=== PATIENT | female | born 1945 | race Caucasian/White ===

== ENCOUNTER → 2018-10-15 14:50 | Outpatient (CLI) | payer MEDICARE, SELFPAY ==
--- NOTE | 2018-10-15 14:58 | XR_ITS ---
XR knee LT 3V HISTORY: ITS.REASON: OA, LT KNEE PAIN ORDERING PHYSICIAN: Chandana Ambrocio MD PATIENT AGE: 73 years COMPARISON: 03/17/2017 FINDINGS: Moderate to severe osteoarthritic changes are present involving the lateral compartment with valgus angulation of the tibia. There are moderate osteoarthritic changes of the patellofemoral joint. Mild osteoarthritis involves the medial compartment. No fracture or dislocation. IMPRESSION: Moderate to severe osteoarthritis of the left knee worse at the lateral compartment. This is somewhat progressed compared to the previous exam
== END ==
PROVIDERS: PCP Family Medicine; Visit Provider Family Medicine
DX: M25.562 Pain in left knee (principal)
CPT/HCPCS: 73562

== ENCOUNTER → 2019-03-29 11:13 | Outpatient (CLI) | payer MEDICARE, SELFPAY ==
[2019-03-29 11:51] LABS: Hemoglobin A1C 5.6 % (0.0-7.0)
[2019-03-29 13:22] LABS: Alanine Aminotransferase 21 U/L (12-78); Albumin Level 3.7 gm/dL (3.4-5.0); Albumin/Globulin Ratio 1.2 (1.1-1.8); Alkaline Phosphatase 89 U/L (46-116); Anion Gap 14.1 mEq/L (5-15); Aspartate Amino Transferase 19 U/L (15-37); Bilirubin,Total 0.4 mg/dL (0.2-1.0); Blood Urea Nitrogen 15 mg/dL (7-18); Calcium 8.8 mg/dL (8.5-10.1); Carbon Dioxide 27 mmol/L (21.0-32.0); Chloride 106 mmol/L (98-107); Chol/HDL Ratio 3.5 (1-3.5); Cholesterol 173 mg/dL (140-200); Creatinine,Serum 0.67 mg/dL (0.55-1.02); Estimated Glomerular Filt Rate 87 ml/min (>60); GFR (African American) 105 ML/MIN (>60); Glucose 93 mg/dL (74-106); HDL Cholesterol 49 mg/dL (29-89); LDL Cholesterol 90 mg/dL (0-130); Potassium 4.1 mmoL/L (3.5-5.1); Sodium 143 mmol/L (136-145); Thyroid Stimulating Hormone 2.11 uIU/ml (0.358-3.740); Total Protein,Serum 6.7 gm/dL (6.4-8.2); Triglycerides 171 mg/dL (30-200); VLDL Cholesterol 34 mg/dL (0-40)
== END ==
PROVIDERS: Visit Provider Family Medicine
DX: E03.9 Hypothyroidism, unspecified (principal); R60.0 Localized edema; Z79.899 Other long term (current) drug therapy
CPT/HCPCS: 36415; 80053; 80061; 83036; 84443

== ENCOUNTER 2020-04-02 08:54 | Emergency (ER) | payer MEDICARE, SELFPAY ==
--- NOTE | 2020-04-02 | ECG_ITS ---
APPROVED REPORT Exam: Resting ECG HR:72 bpm ECG Measurements Heart Rate 72 AXES AL 156 P 109 QRSd 82 QRS -7 QT 408 T 11 QTc 446 <Conclusion> Normal sinus rhythm Normal ECG Electronically signed by : Azeem Adams, 04/03/2020 17:12:59
[2020-04-02 08:55] VITALS: BP 159/74; PULSE 102; RESP 20; TEMP 36.7; O2SAT 97; BMI 35.4
--- NOTE | 2020-04-02 09:17 | XR_ITS ---
PROCEDURE: XR CHEST PORTABLE CLINICAL HISTORY: chest pain Mid chest pain COMPARISON: No exams were available for comparison FINDINGS: Normal heart size. There is increased density in the retrocardiac region centrally and may be due to hiatal hernia. This could be confirmed with CT. The remaining lungs are clear. The lungs are clear without infiltrates, suspicious nodules, or pleural effusions. No acute bony abnormalities. IMPRESSION: Suspect hiatal hernia otherwise negative Dictated by: Donato Palomo MD 04/02/2020 09:43 Electronically signed by Donato Palomo MD in [place] 04/02/2020 09:43
--- NOTE | 2020-04-02 09:29 | CT_ITS ---
PROCEDURE: CT ABDOMEN PELVIS W CON CLINICAL INDICATION: vomiting diarrhea Nausea, vomiting, diarrhea with epigastric pain COMPARISON: No exams were available for comparison TECHNIQUE: IV Contrast: 75ML OPTIRAY 350 Oral Contrast None Axial images obtained with sagittal and coronal reformats. All CT scans at the facility use one or more dose reduction, viz: automated exposure control, ma/kV adjustment per patient size (including targeted exams where dose is matched to indication, i.e. head), or iterative reconstruction technique. FINDINGS: LOWER THORAX: Moderate-sized hiatal hernia. ABDOMEN & PELVIS: The liver, spleen, adrenal glands, and pancreas have an unremarkable appearance. There is some mild thickening of the gastric antrum and duodenal bulb which could be related to duodenitis/gastritis. Upper endoscopy or upper GI may confirm. There are bilateral parapelvic renal cysts. No renal or ureteral calculi No intestinal obstruction or free air.. No evidence of appendicitis. There are scattered colonic diverticula. No evidence of diverticulitis. No pelvic mass or abnormal fluid collection. There is some thickening of the abdominal wall at the umbilical region possibly due to prior surgery. No abdominal wall hernias apparent. No acute bony finding. IMPRESSION: 1. Moderate-sized hiatal hernia. 2. Thickening of the gastric antrum and duodenum which could be related underlying gastritis/duodenitis. Infiltrating process such as neoplasm is an additional consideration. Upper endoscopy may provide further evaluation. 3. Colonic diverticulosis without diverticulitis Dictated by: Donato Palomo MD 04/02/2020 10:33 Electronically signed by Donato Palomo MD in [place] 04/02/2020 10:33
[2020-04-02 09:30] LABS: Basophils % 0.6 % (0.1-2.0); Eosinophils # 0.1 K/mm3 (0.0-0.4); Eosinophils % 0.7 % (0.1-12.0); Hematocrit 37.9 % (37.0-47.0); Lymphocytes # 1.7 K/mm3 (0.7-4.5); Lymphocytes % 25.6 % (10-50); Mean Corpuscular HGB Conc 34.3 g/dL (31.8-35.4); Mean Corpuscular Hemoglobin 31.1 pg (27.0-31.2); Mean Corpuscular Volume 90.7 fl (81-99); Mean Platelet Volume 9.1 fl (7.4-10.4); Monocytes # 0.2 K/mm3 (0.1-1.0); Monocytes % 3.2 % (1.7-9.3); Neutrophils # 4.5 K/mm3 (1.8-7.8); Neutrophils % 69.9 % (37.0-80.0); Platelet Count 179 K/mm3 (142-424); Red Blood Count 4.18 M/mm3 (4.20-5.40); Red Cell Distribution Width 13.7 % (11.5-17.5); White Blood Count 6.5 K/mm3 (4.8-10.8)
[2020-04-02 09:35] LABS: Chloride 106 mmol/L (98-107); Sodium 139 mmol/L (136-145)
[2020-04-02 09:37] LABS: Amylase 62 U/L (30-110)
[2020-04-02 09:38] LABS: Alanine Aminotransferase 18 U/L (12-78); Albumin/Globulin Ratio 1.4 (1.1-1.8); Alkaline Phosphatase 80 U/L (38-126); Aspartate Amino Transferase 26 U/L (14-36); Bilirubin,Total 0.6 mg/dl (0.2-1.3); Blood Urea Nitrogen 32 mg/dl (7-17); Calcium 8.6 mg/dl (8.4-10.2); Carbon Dioxide 22 mmol/L (22.0-30.0); Creatinine Clearance Estimated 72 mL/min (50-200); Estimated Glomerular Filt Rate 121 ml/min (>60); GFR (African American) 146 ML/MIN (>60); Globulin 2.8 g/dL (1.3-3.2); Glucose 126 mg/dl (74-100); Total Protein,Serum 6.8 g/dl (6.3-8.2)
[2020-04-02 09:42] LABS: Lipase 70 U/L (23-300)
[2020-04-02 09:43] VITALS: BP 117/61; PULSE 75; RESP 14; O2SAT 97
[2020-04-02 09:50] LABS: Troponin I < 0.01 ng/ml (0.00-0.034)
--- NOTE | 2020-04-02 09:52 | PC.NURSE ---
pt gone to rad
--- NOTE | 2020-04-02 10:21 | PC.NURSE ---
pt back from rad
--- NOTE | 2020-04-02 10:22 | PC.NURSE ---
pt gone to restroom
[2020-04-02 10:30] LABS: Appearance,Urine CLEAR (Clear); Bilirubin,Urine Negative (Negative); Blood, Urine TRACE-L (Negative); Color,Urine YELLOW (Yellow); Glucose,Urine (UA) Negative (Negative); Ketones,Urine TRACE (Negative); Leukocyte Esterase,Urine 1+ (Negative); Microscopic, Urine URINE MICROSCOPIC (MICROSCOPIC); Nitrate,Urine Negative (Negative); Protein,Urine Negative (Negative); Urobilinogen,Urine 0.2 EU/dl (0.2)
[2020-04-02 10:36] LABS: Amorphous Sediment,Urine Trace /lpf; RBC,Urine Occasional #/hpf (0-3); Squamous Epithelial Cell,Urine Occasional #/hpf (0-5); WBC,Urine Occasional #/hpf (0-3)
[2020-04-02 10:48] VITALS: BP 134/81; PULSE 84; RESP 17; O2SAT 96
--- NOTE | 2020-04-02 11:14 | PC.NURSE ---
up to restroom
--- NOTE | 2020-04-02 11:16 | HMH.EDNVD ---
ED Disposition Clinical Impression: Gastroenteritis Disposition: Home, Self-Care Condition on Discharge: Good Instructions: DI for Diarrhea and Traveler's Diarrhea -- Adult, DI for Diarrhea and Traveler's Diarrhea -- Child, DI for Nausea -- Adult, DI for Nausea -- Child Additional Instructions: Please follow-up with primary care and get a EGD done to further evaluate the thickening of your stomach. Prescriptions: Ondansetron [Zofran 4mg ODT] 4 mg PO TID PRN 4 Days #15 tab.rapdis PRN Reason: Nausea Transmission Status: [facility] to [facility] Referrals: Chandana Ambrocio MD [Primary Care Provider] - - Critical Care Critical Care Time: No Attestation: On 04/02/20, the high probability of a clinically significant, sudden or life threatening deterioration of the following system(s) required my full and direct attention, intervention and personal management. The time I documented below is in addition to time spent performing reported procedures but includes the following listed in this critical care notation. Medical Decision Making - Medical Records Medical records reviewed: Yes: I reviewed the patient's medical records. - Harshal Inquiry Pt receiving controlled substance: No Vital Signs: 04/02/20 08:55 04/02/20 09:43 04/02/20 10:48 Temperature 98.1 F Temperature Source Oral Pulse Rate [Left Radial] 102 H 75 84 Respiratory Rate 20 14 17 Blood Pressure [Right Arm] 159/74 H 117/61 134/81 Blood Pressure Mean [Right Arm] 102 79 98 Blood Pressure Source [Right Arm] Automatic Cuff Automatic Cuff Blood Pressure Position [Right Arm] Sitting Supine Supine 02 Sat by Pulse Oximetry 97 97 96 Oxygen Delivery Method Room Air Room Air Room Air - Lab Data Lab results reviewed: Yes: I reviewed the patient's lab results. Lab Results 04/02/20 09:20: WBC 6.5, RBC 4.18 L, Hgb 13.0, Hct 37.9, MCV 90.7, MCH 31.1, MCHC 34.3, RDW 13.7, Plt Count 179, MPV 9.1, Neut % (Auto) 69.9, Lymph % (Auto) 25.6, [place]hin % (Auto) 3.2, Eos % (Auto) 0.7, Baso % (Auto) 0.6, Neut # (Auto) 4.5, Lymph # (Auto) 1.7, [place] # (Auto) 0.2, Eos # (Auto) 0.1, Baso # (Auto) 0.0 04/02/20 09:20: Sodium 139, Potassium 4.0, Chloride 106, Carbon Dioxide 22, Anion Gap 15.0, BUN 32 H, Creatinine 0.50 L, Estimated Creat Clear 72, Estimated GFR 121, Est GFR ( Amer) 146, Glucose 126 H, Calcium 8.6, Total Bilirubin 0.6, AST 26, ALT 18, Alkaline Phosphatase 80, Troponin I < 0.01, Total Protein 6.8, Albumin 4.0, Globulin 2.8, Albumin/Globulin Ratio 1.4, Amylase 62 04/02/20 09:20: Lipase 70 04/02/20 10:25: Urine Color Yellow, Urine Appearance Clear, Urine pH 6.0, Ur Specific [place] 1.010, Urine Protein Negative, Urine Glucose (UA) Negative, Urine Ketones Trace, Urine Blood Trace-l, Urine Nitrate Negative, Urine Bilirubin Negative, Urine Urobilinogen 0.2, Ur Leukocyte Esterase 1+ A, Urine RBC Occasional, Urine WBC Occasional, Ur Squamous Epith Cells Occasional, Amorphous Sediment Trace, Urine Bacteria None Result diagrams: 04/02/20 09:20 04/02/20 09:20 Orders (Tests/Meds): ED MEDICATIONS Generic Name Dose Route Start Last Admin Trade Name Frelauren PRN Reason Stop Dose Admin Sodium Chloride 8 ml 04/02/20 09:50 04/02/20 09:52 Sodium Chloride 0.9% 10ml Vial IV 05/02/20 09:49 8 ml NEEDED PRN Administration dilute pepcid Discontinued Medications Generic Name Dose Route Start Last Admin Trade Name Freq PRN Reason Stop Dose Admin Famotidine 20 mg 04/02/20 09:50 04/02/20 09:52 Pepcid 20mg/2ml Vial IV 04/02/20 09:51 20 mg ONCE ONE Administration Sodium Chloride 1,000 mls @ 999 mls/hr 04/02/20 09:30 04/02/20 09:15 Sod Chlor 0.9% 1000ml Bag IV 04/02/20 10:30 999 mls/hr .Q1H1M JESSICA Administration Ioversol 75 ml 04/02/20 10:13 04/02/20 10:17 Rad-Optiray 350 100ml Vial IV 04/02/20 10:14 75 ml ONCE ONE Administration Protocol Ondansetron HCl 4 mg 04/02/20 09:18 04/02/20 09:15 Zofran 4mg/2ml
--- NOTE | 2020-04-02 11:20 | PC.NURSE ---
pt going to room 216
--- NOTE | 2020-04-02 11:24 | PC.NURSE ---
called admissions to let them know that pt is going to room 216, opal to opal, bilateral pneumonia, elevated INR, obs talked to Carol
[2020-04-02 11:58] VITALS: BP 97/81; PULSE 86; RESP 16; O2SAT 95
[2020-04-02 12:59] VITALS: BP 117/87; PULSE 68; RESP 16; TEMP 36.6; O2SAT 98
== END 2020-04-02 13:01 | disposition home or self-care (01) ==
PROVIDERS: Emergency Provider Family Medicine; PCP Family Medicine
DX: K52.9 Noninfective gastroenteritis and colitis, unspecified (principal); R82.90 Unspecified abnormal findings in urine
CPT/HCPCS: 71045; 74177; 80053; 81001; 82150; 83690; 84484; 85025; 87086; 87088; 87186; 93005; 96365; 96375; 96376; 99284; J2405; Q9967

== ENCOUNTER → 2020-04-05 11:44 | Outpatient (CLI) | payer MEDICARE, SELFPAY ==
[2020-04-05 15:15] LABS: Coronavirus 19 IgG Antibody Negative (Negative); Coronavirus 19 IgM Antibody Negative (Negative)
== END ==
PROVIDERS: Visit Provider Internal Medicine Gastroenterology
DX: Z01.818 Encounter for other preprocedural examination (principal)
CPT/HCPCS: 36415; 86328

== ENCOUNTER 2020-04-07 11:22 | Day surgery (SDC) | payer MEDICARE, SELFPAY ==
[2020-04-07 12:17] VITALS: BP 128/88; PULSE 70; RESP 18; TEMP 37; O2SAT 98; BMI 34.5
[2020-04-07 13:43] VITALS: O2SAT 97
--- NOTE | 2020-04-07 13:46 | P.PCN_ITS ---
[facility] Procedure Note Procedure Note:: Upper Endoscopy Procedure Report: Esophagogastroduodenoscopy with cold biopsies Endoscopost: Jorge Chen II, MD Referring Physician: Scott Ambrocio MD Date of Procedure: April 07, 2020 Equipment: Olympus GIF 180 standard upper endoscope Sedation: MAC sedation Indications: Mrs. Oseguera is a 74-year-old female who is here for diagnostic upper endoscopy. The patient has had no abdominal complaints until Thursday, April 02, 2020 when she developed nausea, vomiting, diarrhea and melanotic stools. She did go to the emergency department where she had labs and CT scan of the abdomen showed a moderate sized hiatal hernia. There was evidence of thickening in the antrum and duodenum and infiltrative process could not be excluded. There was colonic diverticulosis. The patient's COVID testing was negative. Her hemoglobin 13.0 and hematocrit 37.9 were normal. She was given IV fluids and antiemetics and improved. She is not taking anything since then as an outpatient. All of her symptoms have resolved. The patient did have normal liver and pancreatic chemistries. She does state that she had an EGD many years ago when she was much younger. Procedure: Prior to the procedure, a history and physical exam was performed, and patient's medications and allergies were reviewed. The risks, benefits and alternatives of the sedation and procedure were discussed with the patient. All questions were answered and informed consent was obtained. The patient was brought to the procedure room. Patient identification and proposed procedure were verified by the physician and the nurse. The patient was placed in a left lateral decubitus position and the scope was passed under direct vision. Throughout the procedure, the patient's blood pressure, pulse, and oxygen saturations were monitored continuously. The upper GI endoscopy was accomplished without difficulty. The patient tolerated the procedure well. Findings: The scope was passed directly into the upper esophagus and advanced to the third portion of the duodenum. The post bulbar duodenum and duodenal bulb were normal with normal mucosa and conniventes. The scope was withdrawn through a normal duodenal bulb and pylorus into the stomach. There was some moderate linear reactive gastropathy of the antrum and body. There were superficial erosions/erosive gastropathy. Upon retroflexion there was a moderate to large (5 to 6 cm) hiatal hernia and there were linear Maxwell's erosions. The diaphragmatic hiatus was at 39 cm and the gastroesophageal junction was at 33 to 34 cm. 2 biopsies were taken in the antrum and along the lesser curvature for histology to rule out gastritis and/or H pylori. The scope was then withdrawn into the esophagus. There was no evidence of reflux esophagitis or Livingston's. There was mild presbyesophagus. The remainder of the esophageal mucosa was normal. Impression: 1. Large (5 to 6 cm) hiatal hernia with Maxwell's erosions 2. Mild presbyesophagus 3. Linear erosive gastropathy (probable reactive gastropathy) Plan: I will follow-up the biopsies. The patient is clinically much improved. I would avoid NSAIDs presently which may be the culprit. She may have had a foodborne illness or acute self-limited enteritis/gastroenteritis.
[2020-04-07 13:50] VITALS: BP 134/93; PULSE 66; RESP 18; TEMP 36.7; O2SAT 93
[2020-04-07 14:00] VITALS: BP 161/100; PULSE 78; RESP 18; O2SAT 93
[2020-04-07 14:10] VITALS: BP 158/74; PULSE 71; RESP 18; O2SAT 93
[2020-04-07 14:30] VITALS: BP 142/78; PULSE 77; RESP 18; O2SAT 96
== END 2020-04-07 14:30 | disposition home or self-care (01) ==
LOC: OUTP 11:24
PROVIDERS: PCP Family Medicine; Visit Provider Internal Medicine Gastroenterology
PROC: 0DJ08ZZ Inspection of Upper Intestinal Tract, Via Natural or Artificial Opening Endoscopic (ICD-10-PCS; CPT 43235; principal; 2020-04-07 12:30)
DX: K44.9 Diaphragmatic hernia without obstruction or gangrene (principal); K25.9 Gastric ulcer, unspecified as acute or chronic, without hemorrhage or perforation; K31.9 Disease of stomach and duodenum, unspecified; K22.8 Other specified diseases of esophagus
CPT/HCPCS: 43239; 88305

== ENCOUNTER → 2021-01-15 14:26 | Outpatient (CLI) | payer MEDICARE, SELFPAY ==
--- NOTE | 2021-01-15 14:30 | XR_ITS ---
PROCEDURE: XR KNEE LT 4V CLINICAL INDICATION: BL knee pain COMPARISON: CR [id number] XR knee LT 3V from 10/15/2018 FINDINGS: There is severe osteoarthritic change of the lateral compartment with loss of the joint space and lateral angulation of the distal tibia with the lateral femoral condyle causing some impaction upon lateral tibial plateau. These findings have progressed since 10/15/2018. There is lateral subluxation of the tibia by 7 mm. Moderate to severe osteoarthritic changes are present at the patellofemoral joint and medial compartment. No acute fracture or dislocation. Other findings:None. IMPRESSION: Severe osteoarthritis greatest at the lateral compartment with lateral tibial subluxation as described above. Dictated by: Donato Palomo MD 01/15/2021 16:25 Donato Palomo MD in [place] 01/15/2021 16:25
--- NOTE | 2021-01-15 14:30 | XR_ITS ---
PROCEDURE: XR KNEE RT 4V CLINICAL INDICATION: BL knee pain COMPARISON: CR [id number] XR knee LT 3V from 10/15/2018 FINDINGS: Severe osteoarthritic changes are present involving the lateral compartment with lateral angulation of the tibia and mild impaction upon the superior aspect the lateral tibial plateau. Osteoarthritic changes are also present at the medial compartment and patellofemoral joint. Small suprapatellar effusion suspected. IMPRESSION: Severe osteoarthritis of the lateral compartment of the right knee as described with dysplastic changes of the lateral knee joint Dictated by: Donato Palomo MD 01/15/2021 17:00 Donato Palomo MD in [place] 01/15/2021 17:00
== END ==
PROVIDERS: PCP Family Medicine; Visit Provider Orthopaedic Surgery
DX: M25.561 Pain in right knee (principal); M25.562 Pain in left knee
CPT/HCPCS: 73564

== ENCOUNTER 2021-02-02 14:35 | Outpatient (RCR) | payer MEDICARE, SELFPAY | END 2021-02-02 15:20 | disposition home or self-care (01) | LOC: PT 14:35 | PROVIDERS: Visit Provider Orthopaedic Surgery | DX: M17.0 Bilateral primary osteoarthritis of knee (principal) ==

== ENCOUNTER → 2021-03-22 11:43 | Outpatient (CLI) | payer MEDICARE, SELFPAY ==
--- NOTE | 2021-03-22 | ECG_ITS ---
APPROVED REPORT Exam: Resting ECG HR:61 bpm ECG Measurements Heart Rate 61 AXES OH 156 P 6 QRSd 88 QRS 52 QT 392 T 34 QTc 394 Conclusion Normal sinus rhythm Normal ECG Electronically signed by : Azeem Adams, 03/22/2021 18:02:25
--- NOTE | 2021-03-22 12:04 | XR_ITS ---
PROCEDURE: XR CHEST 2V CLINICAL HISTORY: Essential (primary) hypertension COMPARISON: CR XR CHEST PORTABLE from 04/02/2020 FINDINGS: The cardiomediastinal silhouette and pulmonary vascularity are within normal limits. The lungs are clear without infiltrates, suspicious nodules, or pleural effusions. There is a small hiatal hernia. Degenerative changes are present in the thoracic spine. There is evidence of old granulomatous disease IMPRESSION: No change with no acute finding. Dictated by: Donato Palomo MD 03/22/2021 14:21 Donato Palomo MD in [place] 03/22/2021 14:21
[2021-03-22 12:40] LABS: Chloride 106 mmol/L (98-107); Sodium 142 mmol/L (136-145)
[2021-03-22 12:41] LABS: Potassium 4.7 mmoL/L (3.5-5.1)
[2021-03-22 12:43] LABS: Alanine Aminotransferase 14 U/L (12-78); Albumin Level 4.4 g/dl (3.5-5.0); Albumin/Globulin Ratio 1.6 (1.1-1.8); Alkaline Phosphatase 107 U/L (38-126); Anion Gap 14.7 mEq/L (5-15); Aspartate Amino Transferase 23 U/L (14-36); Bilirubin,Total 0.4 mg/dl (0.2-1.3); Blood Urea Nitrogen 11 mg/dl (7-17); Carbon Dioxide 26 mmol/L (22.0-30.0); Cholesterol 200 mg/dl (140-200); Estimated Glomerular Filt Rate 98 ml/min (>60); GFR (African American) 118 ML/MIN (>60); Globulin 2.7 g/dL (1.3-3.2); Total Protein,Serum 7.1 g/dl (6.3-8.2); Triglycerides 276 mg/dl (30-150); VLDL Cholesterol 55 mg/dL (0-40)
[2021-03-22 12:44] LABS: Calcium 9.3 mg/dl (8.4-10.2); Chol/HDL Ratio 4.2 (1-3.5); Glucose 97 mg/dl (74-100); HDL Cholesterol 48 mg/dl (40-60)
[2021-03-22 12:54] LABS: Direct LDL Cholesterol 119.64 mg/dL (100-129)
[2021-03-22 13:14] LABS: Thyroid Stimulating Hormone 2.43 uIU/mL (0.465-4.68)
== END ==
PROVIDERS: Visit Provider Family Medicine
DX: I10 Essential (primary) hypertension (principal); R07.2 Precordial pain; E03.9 Hypothyroidism, unspecified
CPT/HCPCS: 36415; 71046; 80053; 80061; 84443; 93005

== ENCOUNTER → 2021-04-19 16:09 | Outpatient (CLI) | payer MEDICARE, SELFPAY ==
[2021-04-19 16:55] LABS: Basophils # 0.1 K/mm3 (0-0.2); Basophils % 0.9 % (0.1-2.0); Eosinophils # 0.1 K/mm3 (0.0-0.4); Eosinophils % 1.1 % (0.1-12.0); Hematocrit 43.5 % (37.0-47.0); Hemoglobin 14.5 g/dL (12.2-16.2); Lymphocytes # 2.7 K/mm3 (0.7-4.5); Lymphocytes % 41.5 % (10-50); Mean Corpuscular HGB Conc 33.4 g/dL (31.8-35.4); Mean Corpuscular Hemoglobin 30.2 pg (27.0-31.2); Mean Corpuscular Volume 90.6 fl (81-99); Mean Platelet Volume 9.8 fl (7.4-10.4); Monocytes # 0.3 K/mm3 (0.1-1.0); Monocytes % 4.1 % (1.7-9.3); Neutrophils # 3.5 K/mm3 (1.8-7.8); Neutrophils % 52.4 % (37.0-80.0); Platelet Count 194 K/mm3 (142-424); Red Blood Count 4.81 M/mm3 (4.20-5.40); Red Cell Distribution Width 13.4 % (11.5-17.5); White Blood Count 6.6 K/mm3 (4.8-10.8)
[2021-04-19 17:03] LABS: Activated Partial Thrombo Time 26.3 seconds (22.8-30.6); Prothrombin Time 10.9 seconds (10.1-12.5)
[2021-04-19 17:05] LABS: INR 0.92 (0.9-1.1)
[2021-04-19 17:57] LABS: Chloride 104 mmol/L (98-107); Sodium 143 mmol/L (136-145)
[2021-04-19 17:58] LABS: Potassium 4.5 mmoL/L (3.5-5.1)
[2021-04-19 18:01] LABS: Anion Gap 13.5 mEq/L (5-15); Blood Urea Nitrogen 14 mg/dl (7-17); Carbon Dioxide 30 mmol/L (22.0-30.0); Estimated Glomerular Filt Rate 82 ml/min (>60); GFR (African American) 99 ML/MIN (>60); Glucose 83 mg/dl (74-100)
== END ==
PROVIDERS: Visit Provider Family Medicine
DX: Z01.818 Encounter for other preprocedural examination (principal); Z51.81 Encounter for therapeutic drug level monitoring
CPT/HCPCS: 36415; 80048; 85025; 85610; 85730

== ENCOUNTER → 2021-04-21 09:39 | Outpatient (CLI) | payer MEDICARE, SELFPAY ==
[2021-04-21 09:52] LABS: Microscopic, Urine URINE MICROSCOPIC (MICROSCOPIC)
[2021-04-21 09:59] LABS: Appearance,Urine CLEAR (Clear); Bilirubin,Urine Negative (Negative); Blood, Urine Negative (Negative); Color,Urine YELLOW (Yellow); Glucose,Urine (UA) Negative (Negative); Ketones,Urine Negative (Negative); Leukocyte Esterase,Urine 1+ (Negative); Nitrate,Urine Negative (Negative); PH,Urine 5.5 (5.0-8.5); Protein,Urine Negative (Negative); Specific Gravity, Urine 1.025 (1.005-1.030); Urobilinogen,Urine 0.2 EU/dl (0.2)
[2021-04-21 10:19] LABS: Bacteria,Urine Trace /lpf; RBC,Urine Occasional #/hpf (0-3); Squamous Epithelial Cell,Urine Occasional #/hpf (0-5)
== END ==
PROVIDERS: Visit Provider Family Medicine
DX: Z01.818 Encounter for other preprocedural examination (principal); R82.90 Unspecified abnormal findings in urine
CPT/HCPCS: 81001; 87086

== ENCOUNTER 2022-05-20 21:24 | Observation (INO) | payer MEDICARE, SELFPAY ==
--- NOTE | 2022-05-20 21:07 | ECG_ITS ---
APPROVED REPORT Exam: Resting ECG HR:76 bpm ECG Measurements Heart Rate 76 AXES WA 186 P 57 QRSd 98 QRS -11 QT 388 T 28 QTc 418 Conclusion SINUS RHYTHM POSSIBLE RIGHT VENTRICULAR CONDUCTION DELAY [RSR (QR) IN V1/V2] PROBABLE SEPTAL MYOCARDIAL INFARCTION , PROBABLY OLD [35 ms Q WAVE IN V1/V2] ABNORMAL ECG UNCONFIRMED REPORT Electronically signed by : Azeem Adams MD 05/21/2022 21:24:39
[2022-05-20 21:23] VITALS: BP 119/65; PULSE 82; RESP 16; TEMP 36.8; O2SAT 96; BMI 31.8
--- NOTE | 2022-05-20 21:37 | XR_ITS ---
PROCEDURE INFORMATION: Exam: XR Chest Exam date and time: 05/20/2022 9:40 PM Age: 76 years old Clinical indication: Other: Faint, diaphoretic; Additional info: Faint feeling, diaphoretic TECHNIQUE: Imaging protocol: Radiologic exam of the chest. Views: 2 views. COMPARISON: CR XR CHEST 2V 03/22/2021 12:16 PM FINDINGS: Lungs: Unremarkable. No consolidation. Pleural spaces: Unremarkable. No pleural effusion. No pneumothorax. Heart/Mediastinum: Unremarkable. No cardiomegaly. Bones/joints: Unremarkable. IMPRESSION: No acute cardiopulmonary abnormality.
[2022-05-20 21:48] LABS: Coronavirus 19, PCR Not Detected (NotDetected); Influenza A, PCR Not Detected (NotDetected); Influenza B, PCR Not Detected (NotDetected)
--- NOTE | 2022-05-20 22:04 | CT_ITS ---
PROCEDURE INFORMATION: Exam: CT Head Without Contrast Exam date and time: 05/20/2022 10:20 PM Age: 76 years old Clinical indication: Pain; Other: Vomiting; Headache; Additional info: Headache vomiting TECHNIQUE: Imaging protocol: Computed tomography of the head without contrast. Radiation optimization: All CT scans at this facility use at least one of these dose optimization techniques: automated exposure control; mA and/or kV adjustment per patient size (includes targeted exams where dose is matched to clinical indication); or iterative reconstruction. COMPARISON: No relevant prior studies available. FINDINGS: Brain: Diffuse cerebral volume loss noted throughout. Low attenuation noted in the white matter. Cerebral ventricles: No ventriculomegaly. Paranasal sinuses: Visualized sinuses are unremarkable. No fluid levels. Mastoid air cells: Visualized mastoid air cells are well aerated. Bones/joints: Unremarkable. No acute fracture. Soft tissues: Unremarkable. IMPRESSION: No evidence of acute intracranial hemorrhage, mass effect, or edema.
[2022-05-20 22:05] VITALS: BP 121/63; PULSE 76; O2SAT 91
[2022-05-20 22:06] LABS: Chloride 108 mmol/L (98-107); Potassium 3.5 mmoL/L (3.5-5.1); Sodium 141 mmol/L (136-145)
[2022-05-20 22:08] LABS: Alanine Aminotransferase 19 U/L (12-78); Aspartate Amino Transferase 34 U/L (14-36); Blood Urea Nitrogen 18 mg/dl (7-17); Creatinine Clearance Estimated 63 mL/min (50-200); Estimated Glomerular Filt Rate 70 ml/min (>60); GFR (African American) 85 ML/MIN (>60)
[2022-05-20 22:08] LABS: Microscopic, Urine URINE MICROSCOPIC (MICROSCOPIC)
[2022-05-20 22:09] LABS: Albumin Level 4.2 g/dl (3.5-5.0); Albumin/Globulin Ratio 1.6 (1.1-1.8); Alkaline Phosphatase 92 U/L (38-126); Anion Gap 9.5 mEq/L (5-15); Basophils % 0.5 % (0.1-2.0); Calcium 8.4 mg/dl (8.4-10.2); Carbon Dioxide 27 mmol/L (22.0-30.0); Eosinophils # 0.1 K/mm3 (0.0-0.4); Eosinophils % 1.2 % (0.1-12.0); Globulin 2.7 g/dL (1.3-3.2); Glucose 119 mg/dl (74-100); Hematocrit 44.4 % (37.0-47.0); Hemoglobin 13.6 g/dL (12.2-16.2); Lipase 318 U/L (23-300); Lymphocytes # 1.7 K/mm3 (0.7-4.5); Mean Corpuscular HGB Conc 30.7 g/dL (31.8-35.4); Mean Corpuscular Hemoglobin 30.6 pg (27.0-31.2); Mean Corpuscular Volume 99.6 fl (81-99); Mean Platelet Volume 10.5 fl (7.4-10.4); Monocytes # 0.4 K/mm3 (0.1-1.0); Monocytes % 5.6 % (1.7-9.3); Neutrophils # 4.2 K/mm3 (1.8-7.8); Neutrophils % 65.7 % (37.0-80.0); Platelet Count 158 K/mm3 (142-424); Red Blood Count 4.46 M/mm3 (4.20-5.40); Red Cell Distribution Width 13.3 % (11.5-17.5); Total Protein,Serum 6.9 g/dl (6.3-8.2); White Blood Count 6.4 K/mm3 (4.8-10.8)
[2022-05-20 22:11] LABS: Appearance,Urine SL CLOUDY (Clear); Bilirubin,Urine Negative (Negative); Blood, Urine TRACE-I (Negative); Color,Urine YELLOW (Yellow); Glucose,Urine (UA) Negative (Negative); Ketones,Urine Negative (Negative); Leukocyte Esterase,Urine 2+ (Negative); Nitrate,Urine Negative (Negative); Protein,Urine 1+ (Negative); Specific Gravity, Urine 1.025 (1.005-1.030); Urobilinogen,Urine 0.2 EU/dl (0.2)
[2022-05-20 22:15] LABS: Bilirubin,Total < 0.1 mg/dl (0.2-1.3); C-Reactive Protein 8.9 mg/L (0-4)
[2022-05-20 22:22] LABS: Bacteria,Urine 2+ /lpf; RBC,Urine Occasional #/hpf (0-3); WBC,Urine 20-50 #/hpf (0-3)
[2022-05-20 22:25] LABS: Troponin I < 0.01 ng/ml (0.00-0.034)
[2022-05-20 22:31] VITALS: BP 146/78; PULSE 74; O2SAT 96
[2022-05-20 22:40] LABS: Erythrocyte Sedimentation Rate 14 mm/hr (0-30)
[2022-05-20 23:01] VITALS: BP 133/106; PULSE 79; O2SAT 96
--- NOTE | 2022-05-20 23:05 | PC.NURSE ---
Pt given pillow for comfort. No other needs or complaints voiced at this time.
--- NOTE | 2022-05-20 23:23 | PC.NURSE ---
patient assisted to bathroom, given cup of ice water. No other needs at this time
[2022-05-20 23:24] LABS: Procalcitonin 0.043 ng/mL (0.0-2.0)
--- NOTE | 2022-05-20 23:34 | PC.NURSE ---
at speaking with pt about POC
--- NOTE | 2022-05-20 23:44 | HMH.EDCP ---
ED Disposition Clinical Impression: Chest pain Qualifiers: Chest pain type: unspecified Qualified Code(s): R07.9 - Chest pain, unspecified UTI (urinary tract infection) Qualifiers: Urinary tract infection type: site unspecified Hematuria presence: without hematuria Qualified Code(s): N39.0 - Urinary tract infection, site not specified Disposition: Admitted as Observation Condition on Discharge: Good Instructions: DI for Diarrhea and Traveler's Diarrhea -- Adult, DI for Diarrhea and Traveler's Diarrhea -- Child, DI for Nausea -- Adult, DI for Nausea -- Child Referrals: Chandana Ambrocio MD [Primary Care Provider] - - Critical Care Critical Care Time: No Attestation: On 05/20/22, the high probability of a clinically significant, sudden or life threatening deterioration of the following system(s) required my full and direct attention, intervention and personal management. The time I documented below is in addition to time spent performing reported procedures but includes the following listed in this critical care notation. Medical Decision Making - Medical Records Medical records reviewed: Yes: I reviewed the patient's medical records. - Harshal Inquiry Pt receiving controlled substance: No Vital Signs: 05/20/22 21:23 05/20/22 22:05 05/20/22 22:31 Temperature 98.2 F Temperature Source Oral Pulse Rate 76 74 Pulse Rate [Left] 82 Respiratory Rate 16 Blood Pressure 121/63 146/78 H Blood Pressure [Right Arm] 119/65 Blood Pressure Mean [Right Arm] 83 02 Sat by Pulse Oximetry 96 91 L 96 Oxygen Delivery Method Room Air Room Air Room Air 05/20/22 23:01 Temperature Temperature Source Pulse Rate 79 Pulse Rate [Left] Respiratory Rate Blood Pressure 133/106 H Blood Pressure [Right Arm] Blood Pressure Mean [Right Arm] 02 Sat by Pulse Oximetry 96 Oxygen Delivery Method Room Air - Lab Data Lab results reviewed: Yes: I reviewed the patient's lab results. Lab Results 05/20/22 21:28: SARS-CoV-2 (PCR) Not detected, Influenza A Untype (PCR) Not detected, Influenza Type B (PCR) Not detected 05/20/22 21:30: WBC 6.4, RBC 4.46, Hgb 13.6, Hct 44.4, MCV 99.6 H, MCH 30.6, MCHC 30.7 L, RDW 13.3, Plt Count 158, MPV 10.5 H, Neut % (Auto) 65.7, Lymph % (Auto) 27.0, Vance % (Auto) 5.6, Eos % (Auto) 1.2, Baso % (Auto) 0.5, Neut # (Auto) 4.2, Lymph # (Auto) 1.7, Vance # (Auto) 0.4, Eos # (Auto) 0.1, Baso # (Auto) 0.0, ESR 14 05/20/22 21:30: Sodium 141, Potassium 3.5, Chloride 108 H, Carbon Dioxide 27, Anion Gap 9.5, BUN 18 H, Creatinine 0.80, Estimated Creat Clear 63, Estimated GFR 70, Est GFR ( Amer) 85, Glucose 119 H, Calcium 8.4, Total Bilirubin < 0.1 L, AST 34, ALT 19, Alkaline Phosphatase 92, Troponin I < 0.01, C-Reactive Protein 8.9 H, Total Protein 6.9, Albumin 4.2, Globulin 2.7, Albumin/Globulin Ratio 1.6, Lipase 318 H, Procalcitonin 0.043 05/20/22 22:04: Urine Color Yellow, Urine Appearance Sl cloudy, Urine pH 6.0, Ur Specific [place] 1.025, Urine Protein 1+, Urine Glucose (UA) Negative, Urine Ketones Negative, Urine Blood Trace-i, Urine Nitrate Negative, Urine Bilirubin Negative, Urine Urobilinogen 0.2, Ur Leukocyte Esterase 2+ A, Urine RBC Occasional, Urine WBC 20-50, Ur Squamous Epith Cells 5-10, Urine Bacteria 2+ Result diagrams: 05/20/22 21:30 05/20/22 21:30 Orders (Tests/Meds): ED MEDICATIONS Generic Name Dose Route Start Last Admin Trade Name Freq PRN Reason Stop Dose Admin Sodium Chloride 1,000 mls @ 999 mls/hr 05/20/22 22:00 05/20/22 22:11 Sod Chlor 0.9% 1000ml Bag IV 05/20/22 23:00 999 mls/hr .Q1H1M JESSICA Administration Ceftriaxone Sodium 1 gm/ 50 mls @ 100 mls/hr 05/20/22 23:45 Sodium Chloride IV 06/03/22 23:44 Q24H JESSICA Discontinued Medications Generic Name Dose Route Start Last Admin Trade Name Freq PRN Reason Stop Dose Admin Ketorolac Tromethamine 30 mg 05/20/22 22:04 05/20/22 22:12 Ketorolac 30mg/Ml Vial IV 05/20/22 22:05 30 mg ONCE O
--- NOTE | 2022-05-20 23:49 | PC.NURSE ---
Dr. Waters on phone with Dr. Ramires
--- NOTE | 2022-05-20 23:59 | PC.NURSE ---
log sorting supervisor notified of pt admission and need for bed assignment
[2022-05-21] VITALS (9 sets, daily range): BP systolic 107–140; BP diastolic 50–95; PULSE 60–86; RESP 16–22; TEMP 36.3–36.8; O2SAT 93–98; BMI 32.5; BMI 32.1; BMI 32.0
--- NOTE | 2022-05-21 00:46 | PC.NURSE ---
PT ARRIVED VIA STRETCHER TO FLOOR AT THIS TIME
[2022-05-21 00:59] LABS: Troponin I < 0.01 ng/ml (0.00-0.034)
[2022-05-21 03:50] LABS: Basophils # 0.1 K/mm3 (0-0.2); Basophils % 1.9 % (0.1-2.0); Eosinophils # 0.1 K/mm3 (0.0-0.4); Hematocrit 44.6 % (37.0-47.0); Hemoglobin 13.5 g/dL (12.2-16.2); Lymphocytes # 1.6 K/mm3 (0.7-4.5); Lymphocytes % 32.5 % (10-50); Mean Corpuscular HGB Conc 30.3 g/dL (31.8-35.4); Mean Corpuscular Hemoglobin 30.2 pg (27.0-31.2); Mean Corpuscular Volume 99.7 fl (81-99); Mean Platelet Volume 9.7 fl (7.4-10.4); Monocytes # 0.3 K/mm3 (0.1-1.0); Monocytes % 5.4 % (1.7-9.3); Neutrophils # 2.9 K/mm3 (1.8-7.8); Neutrophils % 59.1 % (37.0-80.0); Platelet Count 163 K/mm3 (142-424); Red Blood Count 4.48 M/mm3 (4.20-5.40); Red Cell Distribution Width 13.3 % (11.5-17.5); White Blood Count 4.9 K/mm3 (4.8-10.8)
[2022-05-21 03:57] LABS: Anion Gap 6.9 mEq/L (5-15); Blood Urea Nitrogen 14 mg/dl (7-17); Calcium 8.6 mg/dl (8.4-10.2); Carbon Dioxide 29 mmol/L (22.0-30.0); Chloride 110 mmol/L (98-107); Creatinine Clearance Estimated 64 mL/min (50-200); Estimated Glomerular Filt Rate 82 ml/min (>60); GFR (African American) 99 ML/MIN (>60); Glucose 96 mg/dl (74-100); Magnesium 1.9 mg/dl (1.6-2.3); Potassium 3.9 mmoL/L (3.5-5.1); Sodium 142 mmol/L (136-145)
[2022-05-21 04:44] LABS: Troponin I < 0.01 ng/ml (0.00-0.034)
--- NOTE | 2022-05-21 05:05 | PC.NURSE ---
Patient admitted to floor. Patient a&o x4. Patient tolerate RA. Patient has had no episodes of chest pain thus far in shift. VSS Ua culture is pending. Patine thas been NSR on tele. Call light in reach.
--- NOTE | 2022-05-21 07:20 | HMH.PHAVTE ---
[facility] Pharmacy VTE Monitoring - Patient Demographics Admission date: 05/20/22 Report Date: 05/21/22 Time: 07:20 Allergies/Adverse Reactions: Patient Allergies No Known Allergies Allergy (Verified 10/08/21 13:49) Height: 1.6 m Weight: 82.242 kg Patient Problems: Current Active Problems Chest pain (Acute) UTI (urinary tract infection) (Acute) - VTE Risk Labs: VTE Related Lab Results Hgb 13.5 g/dL (12.2-16.2) 05/21/22 03:35 Hct 44.6 % (37.0-47.0) 05/21/22 03:35 Plt Count 163 K/mm3 (142-424) 05/21/22 03:35 BUN 14 mg/dl (7-17) 05/21/22 03:35 Creatinine 0.70 mg/dl (0.52-1.04) 05/21/22 03:35 Estimated Creat Clear 64 mL/min (50-200) 05/21/22 03:35 Was VTE Risk Assessment Performed: Yes VTE Score: 1 VTE Risk Level: Very Low Risk - Prophylaxis VTE Prophylaxis Ordered?: Yes Types of VTE Prophylaxis: TEDS Knee High Location of Applied Device: Bilateral Lower Extremeties
--- NOTE | 2022-05-21 07:20 | HMH.PHAINT ---
MEDICATION RECONCILIATION COMPLETED ON PATIENT USING EXTERNAL FILL HISTORY FROM PHARMACY. -JAYME PERES, IVONED
--- NOTE | 2022-05-21 09:17 | HMH.HP ---
*Admission Date: 05/20/22 <Jesusita Cody 05/21/22 09:34> *Chief complaint: Dizziness; diaphoresis <Jesusita Cody 05/21/22 09:34> *History of present illness: Ms. Oseguera is a 75-year-old female with a history of arthritis, diverticulosis, GERD, and and hypothyroidism who was brought to [facility] emergency room by EMS for evaluation after a sudden episode of dizziness followed by vomiting and diaphoresis. Neighbors were present at the time and states she complained of chest pain. Patient denies having chest pain and shortness of breath. She has had heart palpitations in the past does not recall this occurring yesterday. She stated that she was outside playing with children . Her son was called who summoned EMS to transport her to the emergency room for evaluation. In the emergency room she did receive a liter of IV fluids and was given 30 mg of Ketorolac IV as well as IV Zofran and promethazine. She was also started on Rocephin for possible urinary tract infection with hematuria. Chest x-ray showed nothing acute. CT of the head Revealed no evidence of acute intracranial hemorrhage, mass-effect or edema. Patient has had 3 negative troponin I's. This a.m. patient states she feels fine. She denies chest pain and shortness of breath. <Jesusita Cody 05/21/22 09:42> [facility] History Medical History: Reports:: Gastroesophageal Reflux Disease(GERD), Hypertension, Urinary Tract Infection Denies:: Cancer, Diabetes Mellitus Type 1, Diabetes Mellitus Type 2, Internal Pacemaker, MRSA, Seizures <Jesusita Cody 05/21/22 09:42> *Have you ever received a pneumonia vaccine?: No <Jesusita Cody 05/21/22 09:34> *Have you received a flu vaccine this season?: No <Jesusita Cody 05/21/22 09:34> Other Medical History: Reports: Hypothyroidism <Jesusita Cody 05/21/22 09:34> Comment:: Diverticulosis; uterine prolapse <Jesusita Cody 05/21/22 09:42> Laterality Cases: Bilateral: Tonsillectomy <Jesusita Cody 05/21/22 09:34> Other Surgeries: Yes: Tubal Ligation, Other. No: Pacemaker <Jesusita Cody 05/21/22 09:34> Amputation: No <Jesusita Cody 05/21/22 09:34> Fractures: No <Jesusita Cody 05/21/22 09:34> Comment: Laser surgery on the right eye for retinal repair; benign nodule removed from vocal cords; hernia in 2007 <Jesusita Cody 05/21/22 09:34> - *Social History Smoking Status: Former smoker <Jesusita Cody 05/21/22 09:34> Tobacco Type: cigarettes <Jesusita Cody 05/21/22 09:34> # Packs/Day (cigarettes): 2 <Jesusita Cody 05/21/22 09:34> Alcohol Intake: current <Jesusita Cody 05/21/22 09:34> Alcohol Intake Frequency:: holidays/special occasions only <Jesusita Cody 05/21/22 09:34> Substance Use Type: denies use <Jesusita Cody 05/21/22 09:34> *Occupational Status:: retired <Jesusita Cody 05/21/22 09:34> Housing: house <Jesusita Cody 05/21/22 09:34> Household Members: none <Jesusita Cody 05/21/22 09:34> *Travel in the last 8 weeks: None <Jesusita Cody 05/21/22 09:34> Family Hx:: Cancer, Coronary Artery Disease, Hypertension <Jesusita Cody 05/21/22 09:34> Review of Systems - Constitutional Denies fever(s), Denies lack of energy <Jesusita Cody 05/21/22 09:34> - Eyes Denies change in vision <GloJesusita Mullins 05/21/22 09:34> - ENT Reports dizziness, Denies ear pain, Denies nasal congestion, Denies sore throat <GloJesusita 05/21/22 09:34> - *Cardiovascular Reports lightheadedness, Reports rapid, pounding, or irregular heartbeat, Denies chest pain, Denies shortness of breath, Denies generalized swelling, Denies leg swelling <GloJesusita 05/21/22 09:34> - *Respiratory Denies chest congestion, Denies cough, Denies shortness of breath <CodyJesusita pardo - 05/21/22 09:34> - *Gastrointestinal Reports nausea, Reports vomiting, Denies abdominal pain, Denies change in bowel habits, Denies change in stools, Denies heartburn, Denies bright, red blood in stools, Denies black, t
--- NOTE | 2022-05-21 14:29 | HMH.CNCARD ---
History of Present Illness Consult date: 05/21/22 Requesting physician: Chandana Ambrocio Chief complaint: n/v History of present illness: This is a 76-year-old white female who presented to the emergency department after an episode where she got dizzy and had nausea and vomiting with some diaphoresis. The patient states that she was outside playing with a neighborhood children when she said she had sudden onset of dizziness followed by nausea and vomiting and diaphoresis. In the chart it states that her neighbors reported that she had chest pain during this episode. The patient denies having any chest pain or shortness of breath at that time. She denies any palpitations or racing of the heart. She denies any fever, chills, nausea, vomiting, diarrhea, PND or orthopnea. Her son called EMS and had her transported here to the hospital. The patient was found to have a UTI. She denies any complaints today and is ready to get home. [facility] History I have reviewed the patient's past medical history: Yes Medical History: Reports:: Gastroesophageal Reflux Disease(GERD), Hypertension, Urinary Tract Infection Denies:: Cancer, Diabetes Mellitus Type 1, Diabetes Mellitus Type 2, Internal Pacemaker, MRSA, Seizures *Have you ever received a pneumonia vaccine?: No *Have you received a flu vaccine this season?: No Other Medical History: Reports: Hypothyroidism Laterality Cases: Bilateral: Tonsillectomy Other Surgeries: Yes: Tubal Ligation, Other. No: Pacemaker Amputation: No Fractures: No - *Social History Smoking Status: Former smoker Tobacco Type: cigarettes # Packs/Day (cigarettes): 2 Alcohol Intake: current Alcohol Intake Frequency:: holidays/special occasions only Substance Use Type: denies use *Occupational Status:: retired Housing: house Household Members: none *Travel in the last 8 weeks: None Family Hx:: Cancer, Coronary Artery Disease, Hypertension Meds Home Medications Medication Instructions Recorded Confirmed Type metoprolol succinate 25 mg 25 mg PO DAILY 04/06/21 05/21/22 History tablet,extended release 24 hr Allergies Allergy/AdvReac Type Severity Reaction Status Date / Time No Known Allergies Allergy Verified 10/08/21 13:49 Exam Vital signs and Labs for Last 24 Hours: Temp Pulse Resp BP Pulse Ox 97.7 F 68 22 136/69 96 05/21/22 11:48 05/21/22 12:01 05/21/22 11:48 05/21/22 11:48 05/21/22 11:48 Laboratory Results - last 24 hr 05/20/22 21:28: SARS-CoV-2 (PCR) Not detected, Influenza A Untype (PCR) Not detected, Influenza Type B (PCR) Not detected 05/20/22 21:30: WBC 6.4, RBC 4.46, Hgb 13.6, Hct 44.4, MCV 99.6 H, MCH 30.6, MCHC 30.7 L, RDW 13.3, Plt Count 158, MPV 10.5 H, Neut % (Auto) 65.7, Lymph % (Auto) 27.0, [place] % (Auto) 5.6, Eos % (Auto) 1.2, Baso % (Auto) 0.5, Neut # (Auto) 4.2, Lymph # (Auto) 1.7, [place] # (Auto) 0.4, Eos # (Auto) 0.1, Baso # (Auto) 0.0, ESR 14 05/20/22 21:30: Sodium 141, Potassium 3.5, Chloride 108 H, Carbon Dioxide 27, Anion Gap 9.5, BUN 18 H, Creatinine 0.80, Estimated Creat Clear 63, Estimated GFR 70, Est GFR ( Amer) 85, Glucose 119 H, Calcium 8.4, Total Bilirubin < 0.1 L, AST 34, ALT 19, Alkaline Phosphatase 92, Troponin I < 0.01, C-Reactive Protein 8.9 H, Total Protein 6.9, Albumin 4.2, Globulin 2.7, Albumin/Globulin Ratio 1.6, Lipase 318 H, Procalcitonin 0.043 05/20/22 22:04: Urine Color Yellow, Urine Appearance Sl cloudy, Urine pH 6.0, Ur Specific [place] 1.025, Urine Protein 1+, Urine Glucose (UA) Negative, Urine Ketones Negative, Urine Blood Trace-i, Urine Nitrate Negative, Urine Bilirubin Negative, Urine Urobilinogen 0.2, Ur Leukocyte Esterase 2+ A, Urine RBC Occasional, Urine WBC 20-50, Ur Squamous Epith Cells 5-10, Urine Bacteria 2+ 05/21/22 00:15: Troponin I < 0.01 05/21/22 03:35: Troponin I < 0.01 08/23/22 03:35: WBC 4.9, RBC 4.48, Hgb 13.5, Hct 44.6, MCV 99.7 H, MCH 30.2, MCHC 30.3 L, RDW 13.3, Plt Count 163, MPV 9.7, Neut % (Auto) 59.1, Lymph % (Auto) 32.5
--- NOTE | 2022-05-21 17:51 | PC.NURSE ---
AOX4 ABLE TO MAKE NEEDS KNOWN TO STAFF, TOLERATING ROOM AIR WELL. DENIES CHEST PAIN OR PRESSURE. NO SYNCOPE NOTED THIS SHIFT.
[2022-05-22 04:00] VITALS: BP 119/54; PULSE 65; RESP 18; TEMP 36.4; O2SAT 95; BMI 33.1
[2022-05-22 08:00] VITALS: BP 113/54; PULSE 65; RESP 16; TEMP 36.8; O2SAT 96
--- NOTE | 2022-05-22 09:40 | EXP.PN ---
Subjective *Date: 05/23/22 *Time: 17:21 Interval history: Patient has been doing well. She has been eating without difficulty. She has walked to the bathroom without problems. She has had no dizziness, chest pain, or shortness of breath, she is anxious to go home. Exam Data for Last 24 hours Vital signs and Labs for Last 24 Hours: Temp Pulse Resp BP Pulse Ox 98.2 F 65 16 113/54 L 96 05/22/22 08:00 05/22/22 08:00 05/22/22 08:00 05/22/22 08:00 05/22/22 08:00 I & O for Last 24 hours: Intake & Output 05/19/22 05/20/22 05/21/22 05/22/22 11:59 11:59 11:59 11:59 Intake Total 1050 / 1050 1288 / 1288 Output Total 0 / 0 Balance 1050 / 1050 1288 / 1288 Weight 180 lb 12.465 oz Microbiology Reports for the Last 24 Hours: Microbiology 05/20/22 22:04 Urine,Clean Catch Urine Culture - Preliminary NO GROWTH AFTER 24 HOURS Constitutional Constitutional: no acute distress *Routine Respiratory Exam Respiratory: Present CTA bilaterally (Anteriorly and posteriorly) *Routine Cardiovascular Exam Cardiovascular: Present RRR *Routine Abdominal Exam Abdominal: Present soft and normoactive bowel sounds; Absent tenderness or distended *Routine Extremities Exam Extremities: Present pulses intact; Absent edema or calf tenderness *Routine Neurological Exam Neurological: Present alert and oriented X3 Assessment and Plan *Assessment and plan (1) Urinary tract infection: Status: Acute Category: Medical Code(s): N39.0 - Urinary tract infection, site not specified (2) GERD (gastroesophageal reflux disease): Status: Chronic Category: Medical Code(s): K21.9 - Gastro-esophageal reflux disease without esophagitis (3) Hypertension: Status: Acute Category: Medical Code(s): I10 - Essential (primary) hypertension Assessment and plan all Dx Plan of Treatment: Patient seen and examined this morning. She is stable for discharge. Follow-up for recheck in 1 week.
--- NOTE | 2022-05-22 09:48 | EXP.PN ---
Subjective *Date: 05/22/22 *Time: 09:48 Exam Data for Last 24 hours Vital signs and Labs for Last 24 Hours: Temp Pulse Resp BP Pulse Ox 98.2 F 65 16 113/54 L 96 05/22/22 08:00 05/22/22 08:00 05/22/22 08:00 05/22/22 08:00 05/22/22 08:00 I & O for Last 24 hours: Intake & Output 05/19/22 05/20/22 05/21/22 05/22/22 11:59 11:59 11:59 11:59 Intake Total 1050 / 1050 1288 / 1288 Output Total 0 / 0 Balance 1050 / 1050 1288 / 1288 Weight 180 lb 12.465 oz Microbiology Reports for the Last 24 Hours: Microbiology 05/20/22 22:04 Urine,Clean Catch Urine Culture - Preliminary NO GROWTH AFTER 24 HOURS Assessment and Plan *Assessment and plan Plan will discharge to [facility] today ; ABX for UTI
--- NOTE | 2022-05-22 10:38 | PC.NURSE ---
rounded on patient. no concerns or questions noted at this time. plan for discharge. educated on uti, and home care. stated this has been a wonderful stay. encouraged her to ring out as needed.
--- NOTE | 2022-05-22 11:48 | HMH.PHAINT1 ---
Pharmacy Intervention Comments: DISCHARGE MEDICATION COUNSELING PROVIDED. DISCUSSED CEFUROXIME AND TO TAKE TWICE DAILY FOR 7 DAYS. WATCH FOR UPSET STOMACH, NAUSEA, VOMITING, DIARRHEA. CAN TAKE PRO-BIOTIC OR EAT YOGURT WITH ACTIVE CULTURES TO HELP PREVENT. PATIENT VERBALIZED NO QUESTIONS AT THIS TIME.
--- NOTE | 2022-05-22 12:03 | HMH.PHAINT1 ---
Pharmacy Intervention Comments: DISCHARGE MEDICATION COUNSELING PROVIDED. DISCUSSED CEFUROXIME (TAKE TWICE DAILY FOR 7 DAYS). WATCH FOR UPSET STOMACH, NAUSEA, VOMITING, DIARRHEA. MAY CONSIDER PROBIOTIC OR YOGURT WITH ACTIVE CULTURES TO CUT BACK ON GI SIDE EFFECTS. PATIENT VERBALIZED NO QUESTIONS AT THIS TIME.
--- NOTE | 2022-05-23 14:47 | CARE MANAGER ---
Contacted patient related to discharge from the hospital. She states sh eis feeling much better. 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 Denies questions at this time. CHERI Mills
--- NOTE | 2022-05-24 12:38 | EXP.DC.SUM ---
General Admission date:: 05/21/22 Discharge date: 05/22/22 HPI HPI HPI: Ms. Oseguera is a 75-year-old female with a history of arthritis, diverticulosis, GERD, and and hypothyroidism who was brought to [facility] emergency room by EMS for evaluation after a sudden episode of dizziness followed by vomiting and diaphoresis.? Neighbors were present at the time and states she complained of chest pain.? Patient denies having chest pain and shortness of breath.? She has had heart palpitations in the past does not recall this occurring yesterday.? She stated that she was outside playing with children .? Her son was called who summoned EMS to transport her to the emergency room for evaluation. In the emergency room she did receive a liter of IV fluids and was given 30 mg of Ketorolac IV as well as IV Zofran and promethazine.? She was also started on Rocephin for possible urinary tract infection with hematuria.? Chest x-ray showed nothing acute. CT of the head Revealed no evidence of acute intracranial hemorrhage, mass-effect or edema.? Patient has had 3 negative troponin I's. This a.m. patient states she feels fine.? She denies chest pain and shortness of breath. Hospital Course Hospital Course Hospital Course: The patient appeared to have a UTI, although cardiac etiology was not excluded. Her cardiac enzymes were normal. Cardiology was consulted for further recommendations and she was continued on Rocephin for UTI pending her culture results. Cardiology saw her and felt she had ruled out for an NV. She had had no further chest pains, therefore there was no plans for invasive left cardiac catheterization. She had an echo which showed an EF of 60 to 65% with mild AI and mild MR. They felt she could discharge home and had no further recommendations. By 05/23/2022, the patient was doing well and has been eating without difficulty. She walked to the bathroom without problems and had no dizziness, chest pain, or shortness of breath. She was anxious to go home and was stable for discharge. She will follow-up in 1 week Exam Data for Last 24 hours Vital signs and Labs for Last 24 Hours: Temp Pulse Resp BP Pulse Ox 98.2 F 65 16 113/54 L 96 05/22/22 08:00 05/22/22 08:00 05/22/22 08:00 05/22/22 08:00 05/22/22 08:00 I & O for Last 24 hours: Intake & Output 05/22/22 05/23/22 05/24/22 05/25/22 11:59 11:59 11:59 11:59 Intake Total 1854 / 1854 240 / 240 Output Total 300 / 700 400 / 400 Balance 1554 / 1154 -160 / -160 Weight 187 lb 3 oz Narrative: Constitutional Constitutional: no acute distress *Routine Respiratory Exam Respiratory: Present CTA bilaterally (Anteriorly and posteriorly) *Routine Cardiovascular Exam Cardiovascular: Present RRR *Routine Abdominal Exam Abdominal: Present soft and normoactive bowel sounds; Absent tenderness or distended *Routine Extremities Exam Extremities: Present pulses intact; Absent edema or calf tenderness *Routine Neurological Exam Neurological: Present alert and oriented X3 DS: Diagnosis Discharge Diagnosis (1) Urinary tract infection: Status: Acute (2) GERD (gastroesophageal reflux disease): Status: Chronic (3) Hypertension: Status: Acute Meds Home Medications and Allergies Home Medications Medication Instructions Recorded Confirmed Type metoprolol succinate 25 mg 25 mg PO DAILY Hypertension 04/06/21 05/21/22 History tablet,extended release 24 hr cefuroxime axetil 500 mg tablet 500 mg PO BID 7 days #14 tabs 05/22/22 Rx New Prescriptions to Start Prescriptions: cefuroxime axetil Chandana Ambrocio Allergies Allergy/AdvReac Type Severity Reaction Status Date / Time No Known Allergies Allergy Verified 10/08/21 13:49 Discharge Plan Disposition Patient Disposition: Home, Self-Care Condition: Good Follow up Plan Follow up with: Chandana Ambrocio MD [Primary Care Provider]
== END 2022-05-22 12:54 | disposition home or self-care (01) ==
LOC: ER 21:34 → 2ND 05-21 00:09
PROVIDERS: Admitting Provider Family Medicine; Emergency Provider Emergency Medicine; PCP Family Medicine; Visit Provider Family Medicine
DX: N39.0 Urinary tract infection, site not specified (principal); K21.9 Gastro-esophageal reflux disease without esophagitis; I10 Essential (primary) hypertension; E03.9 Hypothyroidism, unspecified; Z87.891 Personal history of nicotine dependence; M19.90 Unspecified osteoarthritis, unspecified site; Z20.822 Contact with and (suspected) exposure to COVID-19; R06.89 Other abnormalities of breathing; R07.9 Chest pain, unspecified
CPT/HCPCS: G0378; 36415; 70450; 71046; 80048; 80053; 81001; 83690; 83735; 84145; 84484; 85025; 85651; 86140; 87086; 87088; 87186; 93005; 93306; 99285; C9803; J0696; U0003; U0005